=== PATIENT | male | born 1960 | race Caucasian/White ===

== ENCOUNTER 2024-02-04 11:17 | Emergency (ER) | payer MEDICARE, OTHER ==
[~2024-02-04] VITALS: Ht 190.5 cm; Wt 76.2 kg
[~2024-02-04 11:17] MED LIST: ACET325T53 PO; ATOR10TA PO; DIVA125C2 PO; DIVA125C5 PO; GLUC1KIT IJ; HYDR-4076 PO; INSU100V28 SQ; INSU100V7 SQ; LORA-258 PO; LORA-259 PO; LOSA25TA27 PO; MAG-5 PO; MAGN400O6 PO; METF-442 PO; PANT40TA2 PO; RISP2TAB85 PO; TEMA7.5C12 PO
[2024-02-04 11:45] VITALS: TEMP 98
[2024-02-04 12:34] LABS: CALCIUM, SERUM 9.6 mg/dL (8.5-10.1); POTASSIUM 4.5 mmol/L (3.5-5.1)
[2024-02-04 12:37] LABS: BASOPHILS # (AUTO) 0.1 K/uL (0.0-0.2); BASOPHILS % (AUTO) 0.9 % (0.0-2.0); EOSINOPHILS # (AUTO) 0.2 K/uL (0.0-0.7); EOSINOPHILS % (AUTO) 2.5 % (0.0-6.0); HEMATOCRIT 42 % (39-51); HEMOGLOBIN 13.7 g/dL (13.5-17.5); LYMPHOCYTES % (AUTO) 22.1 % (20.0-44.0); MEAN CORPUSCULAR HEMOGLOBIN 30 PG (26.0-33.0); MEAN CORPUSCULAR HGB CONC 33 g/dl (31.0-36.0); MEAN CORPUSCULAR VOLUME 92 fL (80-96); MONOCYTES # (AUTO) 0.6 K/uL (0.1-1.30); MONOCYTES % (AUTO) 7.1 % (2.0-12.0); NEUTROPHILS % (AUTO) 67.4 % (43.0-81.0); PLATELET COUNT (AUTO) 213 K/uL (150-450); RED BLOOD CELL COUNT(AUTO) 4.55 MIL/uL (4.5-6.0); RED CELL DISTRIBUTION WIDTH 15.1 % (11.5-15.0); WHITE BLOOD COUNT (AUTO) 8.9 K/uL (4.3-11.0)
[2024-02-04] MEDS: IV NS 0.9% 500 ML BAG IV ONE (12:40)
[2024-02-04 14:24] VITALS: BP 165/102; O2SAT 99
== END 2024-02-04 14:25 | disposition home or self-care (01) ==
LOC: ER 12:14
DX: R51.9 Headache, unspecified (principal); R42 Dizziness and giddiness; I10 Essential (primary) hypertension; F32.A Depression, unspecified; Z88.8 Allergy status to other drugs, medicaments and biological substances; Z79.84 Long term (current) use of oral hypoglycemic drugs
CPT/HCPCS: 99284; 70450; 93005; 85025; 80048; 36415; J7040

== ENCOUNTER 2024-03-11 18:12 | Inpatient (IN) | payer MEDICARE, OTHER ==
[~2024-03-11] VITALS: Ht 190.5 cm; Wt 84.8 kg
[2024-03-11 19:21] LABS: BASOPHILS # (AUTO) 0.1 K/uL (0.0-0.2); BASOPHILS % (AUTO) 0.6 % (0.0-2.0); EOSINOPHILS # (AUTO) 0.6 K/uL (0.0-0.7); EOSINOPHILS % (AUTO) 6.2 % (0.0-6.0); HEMATOCRIT 33 % (39-51); HEMOGLOBIN 11.4 g/dL (13.5-17.5); LYMPHOCYTES % (AUTO) 21.6 % (20.0-44.0); MEAN CORPUSCULAR HEMOGLOBIN 30 PG (26.0-33.0); MEAN CORPUSCULAR HGB CONC 34 g/dl (31.0-36.0); MEAN CORPUSCULAR VOLUME 89 fL (80-96); MONOCYTES # (AUTO) 0.7 K/uL (0.1-1.30); MONOCYTES % (AUTO) 7.2 % (2.0-12.0); NEUTROPHILS # (AUTO) 6.1 K/uL (1.8-8.9); NEUTROPHILS % (AUTO) 64.4 % (43.0-81.0); PLATELET COUNT (AUTO) 235 K/uL (150-450); RED BLOOD CELL COUNT(AUTO) 3.75 MIL/uL (4.5-6.0); WHITE BLOOD COUNT (AUTO) 9.5 K/uL (4.3-11.0)
[2024-03-11 19:32] LABS: CALCIUM, SERUM 8.9 mg/dL (8.5-10.1); CARBON DIOXIDE 28 mmol/L (21-32); CHLORIDE 105 mmol/L (98-107); CREATININE 1.1 mg/dL (0.6-1.3); GLUCOSE 101 mg/dL (74-106); SODIUM SERUM 142 mmol/L (136-145); UREA NITROGEN, BLOOD 23 mg/dL (7-18)
[2024-03-11 21:59] VITALS: BP 154/87; TEMP 97.7; O2SAT 97
[2024-03-11] MEDS ORDERED: hydrALAZINE HCL IV 20 MG VIAL IV PRN (23:00)
[2024-03-11] MEDS ORDERED: Z GUARD REMEDY 4 OZ OINT TP PRN (23:30)
[2024-03-11] MEDS ORDERED: ZOLPIDEM TARTRATE 5 MG TABLET PO PRN (23:30)
[2024-03-11] MEDS ORDERED: ACETAMINOPHEN 325 MG TABLET PO PRN (23:30)
[2024-03-11] MEDS ORDERED: MAGNESIUM HYDROXIDE 30 ML UDC PO PRN (23:30)
[2024-03-11] MEDS ORDERED: MAG HYDROX/AL HYDROX/SIMETH 30 ML UDC PO PRN (23:30)
[2024-03-11] MEDS ORDERED: ONDANSETRON HCL/PF 4 MG/2 ML VIAL IVP PRN (23:30)
[2024-03-11] MEDS: IV D5/0.45 NACL 1,000 ML IV PRN (23:40)
[2024-03-12] MEDS ORDERED: hydrALAZINE HCL 25 MG TABLET PO PRN (00:30)
[2024-03-12] MEDS ORDERED: MAG HYDROX/AL HYDROX/SIMETH 30 ML UDC PO PRN (00:30)
[2024-03-12] MEDS ORDERED: ACETAMINOPHEN 325 MG TABLET PO PRN (00:30)
[2024-03-12] MEDS ORDERED: TEMAZEPAM 7.5 MG CAPSULE PO PRN (00:30)
[2024-03-12] MEDS ORDERED: MAGNESIUM HYDROXIDE 30 ML UDC PO PRN (00:30)
[2024-03-12] MEDS ORDERED: GLUCAGON,HUMAN RECOMBINANT 1 MG/VIAL VIAL IM PRN (01:00)
[2024-03-12 04:03] VITALS: BP 139/73; TEMP 97.7; O2SAT 97
[2024-03-12] MEDS: DEXTROSE 50%-WATER 50 ML DISP.SYRIN IV PRN (05:39)
[2024-03-12 06:25] LABS: BASOPHILS % (AUTO) 0.6 % (0.0-2.0); EOSINOPHILS # (AUTO) 0.8 K/uL (0.0-0.7); EOSINOPHILS % (AUTO) 9.8 % (0.0-6.0); HEMATOCRIT 35 % (39-51); HEMOGLOBIN 11.7 g/dL (13.5-17.5); LYMPHOCYTES # (AUTO) 2.7 K/uL (0.8-4.8); MEAN CORPUSCULAR HEMOGLOBIN 30 PG (26.0-33.0); MEAN CORPUSCULAR HGB CONC 33 g/dl (31.0-36.0); MEAN CORPUSCULAR VOLUME 90 fL (80-96); MONOCYTES # (AUTO) 0.6 K/uL (0.1-1.30); MONOCYTES % (AUTO) 7.9 % (2.0-12.0); NEUTROPHILS # (AUTO) 3.7 K/uL (1.8-8.9); NEUTROPHILS % (AUTO) 47.7 % (43.0-81.0); PLATELET COUNT (AUTO) 234 K/uL (150-450); RED BLOOD CELL COUNT(AUTO) 3.89 MIL/uL (4.5-6.0); RED CELL DISTRIBUTION WIDTH 14.9 % (11.5-15.0); WHITE BLOOD COUNT (AUTO) 7.8 K/uL (4.3-11.0)
[2024-03-12 06:42] LABS: CALCIUM, SERUM 8.5 mg/dL (8.5-10.1); CREATININE 0.9 mg/dL (0.6-1.3); MAGNESIUM 1.4 mg/dL (1.8-2.4); PHOSPHORUS 3.9 mg/dL (2.5-4.9)
[2024-03-12 06:58] LABS: THYROID STIMULATING HORMONE 2.42 uIU/mL (0.358-3.74)
[2024-03-12 07:30] VITALS: BP 157/90; TEMP 98.1; O2SAT 96
[2024-03-12] MEDS: PANTOPRAZOLE 40 MG TABLET.DR PO SCH (07:30)
[2024-03-12] MEDS: BLOOD SUGAR DIAGNOSTIC 1 EACH STRIP VI SCH (07:34)
[2024-03-12] MEDS: LORAZEPAM 0.5 MG TABLET PO SCH (08:27)
[2024-03-12] MEDS: ENOXAPARIN SODIUM 40 MG/0.4 ML DISP.SYRIN SQ SCH (08:27)
[2024-03-12] MEDS: LOSARTAN POTASSIUM 25 MG TABLET PO SCH (08:28)
[2024-03-12] MEDS: DIVALPROEX SODIUM 125 MG CAP.SPRINK PO SCH ×2 (08:28→13:47)
[2024-03-12] MEDS: risperiDONE 1 MG TABLET PO SCH ×2 (08:28→21:18)
[2024-03-12] MEDS ORDERED: DIVA250T47 PO (08:31)
[2024-03-12] MEDS ORDERED: DOCU100T2 PO (08:31)
[2024-03-12] MEDS ORDERED: MELA3TAB41 PO (08:31)
[2024-03-12] MEDS ORDERED: AMIN30LI2 PO (08:31)
[2024-03-12] MEDS ORDERED: BISA10SU11 RC (08:31)
[2024-03-12] MEDS ORDERED: NICO-762 TD (08:31)
[2024-03-12] MEDS ORDERED: GLIP5TAB13 PO (08:31)
[2024-03-12] MEDS ORDERED: ATOR40TA PO (08:31)
[2024-03-12] MEDS ORDERED: LINA5TAB PO (08:31)
[2024-03-12] MEDS: MAGNESIUM OXIDE 400 MG TABLET PO ONE (09:09)
[2024-03-12] MEDS: hydrALAZINE HCL 25 MG TABLET PO SCH (10:33)
[2024-03-12] MEDS: INSULIN REGULAR, HUMAN 100 UNIT/ML 3 ML VIAL SQ PRN (11:30)
[2024-03-12 16:00] VITALS: BP 172/98; TEMP 97.5; O2SAT 97
[2024-03-12 20:00] VITALS: BP 147/86; TEMP 98.1; O2SAT 99
[2024-03-12] MEDS: ATORVASTATIN 10 MG TABLET PO SCH (21:18)
[2024-03-12] MEDS: *INSULIN REGULAR(HUMULIN R)HUM 100 UNIT/ML VIAL SQ PRN (21:38)
[2024-03-12] MEDS: INSULIN GLARGINE, 100 UNIT/ML CARTRIDGE SQ SCH (21:38)
[2024-03-12 22:00] VITALS: BP 147/86; TEMP 98.1; O2SAT 99
[2024-03-13] VITALS: BP 122/66; TEMP 97.7; O2SAT 97
[2024-03-13 04:00] VITALS: BP 145/75; TEMP 97.9; O2SAT 98
[2024-03-13 07:00] VITALS: BP 147/78; TEMP 97.9; O2SAT 99
[2024-03-13] MEDS: LOSARTAN POTASSIUM 25 MG TABLET PO SCH (09:13)
[2024-03-13 16:00] VITALS: BP 146/88; TEMP 97.7; O2SAT 99
[2024-03-13 20:00] VITALS: BP 136/72; TEMP 97.9; O2SAT 98
== END 2024-03-13 19:50 | DRG 313 ==
LOC: ER 18:14 → TELE 21:24
PROVIDERS: ADMIT Student in an Organized Health Care Education/Training Program; ATTEND Nurse Practitioner Acute Care
DX: R07.9 Chest pain, unspecified (principal); G93.41 Metabolic encephalopathy; I69.951 Hemiplegia and hemiparesis following unspecified cerebrovascular disease affecting right dominant side; E86.0 Dehydration; K21.9 Gastro-esophageal reflux disease without esophagitis; E11.9 Type 2 diabetes mellitus without complications; R13.10 Dysphagia, unspecified; I10 Essential (primary) hypertension; F32.A Depression, unspecified; F29 Unspecified psychosis not due to a substance or known physiological condition; Z87.891 Personal history of nicotine dependence; Z88.8 Allergy status to other drugs, medicaments and biological substances; Z79.4 Long term (current) use of insulin; Z79.84 Long term (current) use of oral hypoglycemic drugs; Z79.899 Other long term (current) drug therapy; R79.89 Other specified abnormal findings of blood chemistry; D63.8 Anemia in other chronic diseases classified elsewhere; E78.5 Hyperlipidemia, unspecified; Z79.82 Long term (current) use of aspirin
CPT/HCPCS: 36415; 70450-TC; 71045-TC; 80048-TC; 80061-TC; 82962-TC; 83735-TC; 84100-TC; 84443-TC; 84484-TC; 85025-TC; 87081-TC; 92526; 92611-TC; 93307-TC; 97110-TC; 97112-TC; 97116-TC; 97530-TC; A4223; G0378; J1650; J1815; J3490

== ENCOUNTER 2024-03-18 13:37 | Emergency (ER) | payer MEDICARE, OTHER ==
[~2024-03-18] VITALS: Ht 190.5 cm; Wt 83.9 kg
[~2024-03-18 13:37] MED LIST changes: +AMIN30LI2 PO; -ATOR10TA PO; +ATOR40TA PO; +BISA10SU11 RC; -DIVA125C2 PO; -DIVA125C5 PO; +DIVA250T47 PO; +DOCU100T2 PO; +GLIP5TAB13 PO; -GLUC1KIT IJ; -INSU100V28 SQ; -INSU100V7 SQ; +LINA5TAB PO; -LORA-258 PO; -LORA-259 PO; -MAG-5 PO; +MELA3TAB41 PO; +NICO-762 TD; -TEMA7.5C12 PO
[2024-03-18 18:32] VITALS: BP 159/87; TEMP 97.9; O2SAT 97
== END 2024-03-18 19:21 ==
LOC: ER 13:40
DX: S09.90XA Unspecified injury of head, initial encounter (principal); F03.90 Unspecified dementia, unspecified severity, without behavioral disturbance, psychotic disturbance, mood disturbance, and anxiety; E11.9 Type 2 diabetes mellitus without complications; I10 Essential (primary) hypertension; Z79.84 Long term (current) use of oral hypoglycemic drugs; Z79.899 Other long term (current) drug therapy; W19.XXXA Unspecified fall, initial encounter; Y93.89 Activity, other specified; Y92.89 Other specified places as the place of occurrence of the external cause; Y99.8 Other external cause status
CPT/HCPCS: 70450-TC; 72125-TC